=== PATIENT | female | born 1930 | race Caucasian/White ===

== ENCOUNTER 2016-05-09 19:04 | Inpatient (IN) ==
[2016-05-09] MEDS ORDERED: Furosemide 20 MG/2 ML VIAL IVP ONE (23:49)
[2016-05-09] MEDS ORDERED: *HR* Digoxin 0.5 MG/2 ML AMPUL IVP ONE (23:49)
--- NOTE | 2016-05-09 23:57 | Internal Med History&Physical ---
Date of Encounter: 05/09/16 Time of Encounter: 23:57 Assessment and Plan (1) Hip fracture Current visit: Yes Status: Acute Orthopedic consultation Qualifiers: Qualified Code(s): S72.009A - Fracture of unspecified part of neck of unspecified femur, initial encounter for closed fracture (2) Preoperative clearance Current visit: Yes Status: Acute Patient is currently a fit with rapid ventricular response. I will give the patient detox and I am beta blockers to control the rate. I would ask a real disservice to see the patient for preoperative clearance. It seems patient has not had a coronary angiogram however she had had a stress test in August 2015 showing no evidence of reversible ischemia. Continue aspirin and beta blockers. (3) UTI (urinary tract infection) Current visit: No Status: Acute Ceftriaxone. Check urine and blood cultures. She is febrile temperature 100 F. Would prefer to hold off surgery to infection is more controllable and patient is a febrile. The patient is on Flagyl therapy at the outside hospital , not clear why. She has history of C diff. I will resume the Flagyl and checks stool for C diff. Qualifiers: Qualified Code(s): N39.0 - Urinary tract infection, site not specified (4) Atrial fibrillation Current visit: No Status: Chronic I will give digoxin and beta blockers for a control. Holds xarelto in anticipation for surgery. Qualifiers: Atrial fibrillation type: chronic Qualified Code(s): I48.2 - Chronic atrial fibrillation (5) Diastolic CHF Current visit: Yes Status: Acute Suspect the patient had an element of pulmonary congestion from rapid atrial fibrillation. I will give the patient of those of Lasix intravenously Qualifiers: Qualified Code(s): I50.30 - Unspecified diastolic (congestive) heart failure Internal Medicine - H&P: HPI Chief complaint: hip pain History of present illness: Ms. Stoll is a 85 year old female who was transferred from [facility] after she had sustained right femur fracture. Patient was hospitalized there for 2 days however surgery was canceled because patient developed a fever. It was thought that the fever was related to blood transfusion reaction that she had received. However a urine analysis was also concerning for a urinary tract infection. Patient is severely demented she cannot provide any history during my interview. Patient was also agitated and was given Ativan and morphine prior to arrival facility. Patient designs are also which is taking for chronic persistent teacher fibrillation. Patient or analysis of the hospital was an atrial fibrillation with rapid ventricular response animals hypoxic requiring 50 L of oxygen to maintain her saturation above 90%. Patient will also having a temperature over 100F Past Med Surg Social Fam HX - Past Medical History Medical history: arthritis, atrial fibrillation, cardiomyopathy, CHF, dementia, GERD, GI bleed, hyperlipidemia, hypertension, osteoporosis Psychiatric history: no psych history - Past Surgical History Surgical History: breast surgery, cholecystectomy, herniorrhaphy, pacemaker/AICD , other - Social History Smoking Status: Former smoker Smokeless Tobacco Status: No Alcohol use: none Drug use: none Internal Medicine - H&P: Meds Aspirin 81 mg GTUBE DAILY 10/13/14 [History] Calcium Carbonate/Vitamin D3 [Calcium 600+D Softgel] 1 each GTUBE DAILY [History] Lactobacillus [Culturelle] 1 each GTUBE BID 8 Days 04/26/16 [Rx] Metoprolol [Lopressor] 50 mg GTUBE BID tablet 04/26/16 [Rx] MetroNIDAZOLE [Flagyl] 500 mg GTUBE Q8H 8 Days 04/26/16 [Rx] Digoxin [Lanoxin] 0.125 mg GTUBE DAILY 05/09/16 [History] HYDROcodone/Acet 5/325 mg [[place] 5-325 mg] 1 tab GTUBE Q8H PRN 05/09/16 [History ] Isosorbide DInitrate [Isosorbide Dinitrate] 10 mg GTUBE BID 05/09/16 [History] Losartan Potassium [Cozaar] 100 mg GTUBE DAILY 05/09/16 [History] Menthol [Bengay Ultra Strength] 1 each TP DAILY 05/09/16 [History] Menthol/Zinc Oxide [Calmoseptine Ointment Packet] 1 appl TP Q6H PRN 05/09/16 [ History] Methyl Salicylate/Menthol [Bengay] 1 appl TP Q12H PRN 05/09/16 [History] Rivaroxaban [Xarelto] 20 mg GTUBE HS 05/09/16 [History] Sertraline [Zoloft] 25 mg GTUBE DAILY 05/09/16 [History] Trazodone HCl 100 mg GTUBE HS 05/09/16 [History] Allergies amiodarone Allergy (Verified 05/22/15 08:33) Difficulty Swallowing ciprofloxacin [From Cipro] Allergy (Verified 05/22/15 08:33) Hives doxycycline Allergy (Verified 05/22/15 08:33) Hives Sulfa (Sulfonamide Antibiotics) Allergy (Verified 05/22/15 08:33) Hives pravastatin Adverse Reaction (Verified 02/03/16 11:34) Dizziness tramadol Adverse Reaction (Verified 02/03/16 11:34) Hypertension All Systems PM: A 10-system review of systems was performed and is negative for pertinent findings except as documented above in the HPI. Review of systems: 10 point review of systems is negative except for HPI - Constitutional Vitals: Temp Pulse Resp BP Pulse Ox 99.1 F 118 18 176/71 100 05/09/16 22:25 05/09/16 22:25 05/09/16 22:25 05/09/16 22:25 05/09/16 22:25 Exam: Gen.: patient is demented agitated cardio: variable intensity of S1 due to atriAl fibrillation chest: fine basal rales abdomen: soft nontender nondistended lower extremity leg shortened and the externally rotated Internal Med - H&P Results - Impressions ITS Impressions Chest X-Ray 05/09/16 22:13 IMPRESSION: Stable exam without evidence for acute cardiopulmonary process. D/ / Shayne Wise MD / Shayne Wise MD Interpreting Provider: Shayne Wise MD
[2016-05-10] MEDS: metroNIDAZOLE 500 MG TABLET GTUBE SCH ×2 (00:31→09:34)
[2016-05-10 01:22] LABS: Basophils % 0.4 %; Hemoglobin 10.5 g/dL (11.5-15.4); Immature Granulocytes % 0.6 % (0-4); Lymphocytes # 0.5 K/mcL (0.6-4.6); Lymphocytes % 5.4 %; Mean Corpuscular HGB Conc 31.8 g/dL (31.6-35.5); Mean Corpuscular Hemoglobin 30.6 pg (28.0-33.3); Mean Corpuscular Volume 96.2 fL (83.0-100.0); Mean Platelet Volume 10.9 fL (9.4-12.4); Monocytes # 1.1 K/mcL (0.0-1.3); Monocytes % 11.7 %; Platelet Count 140 K/mcL (140-400); Red Blood Count 3.43 M/mcL (3.82-4.97); Red Cell Distribution Width 13.2 % (11.5-14.5); Segmented Neutrophils % 81.9 %
[2016-05-10 01:27] LABS: INR 1.4; Prothrombin Time 15.3 Seconds (9.4-12.1)
[2016-05-10 01:34] LABS: BUN/Creatinine Ratio 25 (6-26); Blood Urea Nitrogen 19 mg/dL (7-20); Carbon Dioxide 25 mEq/L (19-29); Chloride 107 mEq/L (98-109); Glucose 127 mg/dL (70-99); Magnesium 1.4 mg/dL (1.6-2.6); Osmolality,Calculated 296 (280-300); Potassium 3.5 mEq/L (3.5-4.5); Sodium 141 mEq/L (136-145); eGFR For African Americans > 60 (> 60); eGFR For Non-African Americans > 60 (> 60)
--- NOTE | 2016-05-10 07:55 | Orthopedic Consult Note ---
Date of Encounter: 05/10/16 Time of Encounter: 07:54 Assessment and Plan (1) Fracture of right hip Current Visit: Yes Status: Acute Awaiting Cardio Consult - Consent discussed - patient has dementia and will discuss with family as well. Plan for Right Hip IM nailing today with History of Present Illness HPI: Ms. Stoll is a 85 year old female Past Med Surg Social Fam HX - Past Medical History Medical history: arthritis, atrial fibrillation, cardiomyopathy, CHF, dementia, GERD, GI bleed, hyperlipidemia, hypertension, osteoporosis Psychiatric history: no psych history - Past Surgical History Surgical History: breast surgery, cholecystectomy, herniorrhaphy, pacemaker/AICD , other - Social History Smoking Status: Former smoker Smokeless Tobacco Status: No Alcohol use: none Drug use: none Medications and Allergies Aspirin 81 mg GTUBE DAILY 10/13/14 [History] Calcium Carbonate/Vitamin D3 [Calcium 600+D Softgel] 1 each GTUBE DAILY [History] Lactobacillus [Culturelle] 1 each GTUBE BID 8 Days 04/26/16 [Rx] Metoprolol [Lopressor] 50 mg GTUBE BID tablet 04/26/16 [Rx] MetroNIDAZOLE [Flagyl] 500 mg GTUBE Q8H 8 Days 04/26/16 [Rx] Digoxin [Lanoxin] 0.125 mg GTUBE DAILY 05/09/16 [History] HYDROcodone/Acet 5/325 mg [[place] 5-325 mg] 1 tab GTUBE Q8H PRN 05/09/16 [History ] Isosorbide DInitrate [Isosorbide Dinitrate] 10 mg GTUBE BID 05/09/16 [History] Losartan Potassium [Cozaar] 100 mg GTUBE DAILY 05/09/16 [History] Menthol [Bengay Ultra Strength] 1 each TP DAILY 05/09/16 [History] Menthol/Zinc Oxide [Calmoseptine Ointment Packet] 1 appl TP Q6H PRN 05/09/16 [ History] Methyl Salicylate/Menthol [Bengay] 1 appl TP Q12H PRN 05/09/16 [History] Rivaroxaban [Xarelto] 20 mg GTUBE HS 05/09/16 [History] Sertraline [Zoloft] 25 mg GTUBE DAILY 05/09/16 [History] Trazodone HCl 100 mg GTUBE HS 05/09/16 [History] Allergies amiodarone Allergy (Verified 05/22/15 08:33) Difficulty Swallowing ciprofloxacin [From Cipro] Allergy (Verified 05/22/15 08:33) Hives doxycycline Allergy (Verified 05/22/15 08:33) Hives Sulfa (Sulfonamide Antibiotics) Allergy (Verified 05/22/15 08:33) Hives pravastatin Adverse Reaction (Verified 02/03/16 11:34) Dizziness tramadol Adverse Reaction (Verified 02/03/16 11:34) Hypertension All Systems Reviewed: A 10-system review of systems was performed and is negative for pertinent findings except as documented above in the HPI. Physical Exam - Constitutional Vitals: Temp Pulse Resp BP Pulse Ox 98.5 F 122 28 141/80 100 05/10/16 06:34 05/10/16 06:34 05/10/16 06:34 05/10/16 06:34 05/10/16 06:34 Results - Labs Result Diagrams: 05/10/16 00:20 05/10/16 00:20 Labs: Abnormal lab results RBC 3.43 M/mcL (3.82-4.97) L 05/10/16 00:20 Hgb 10.5 g/dL (11.5-15.4) L 05/10/16 00:20 Hct 33.0 % (35.3-44.9) L 05/10/16 00:20 Lymphocytes # 0.5 K/mcL (0.6-4.6) L 05/10/16 00:20 PT 15.3 Seconds (9.4-12.1) H 05/10/16 00:20 Glucose 127 mg/dL (70-99) H 05/10/16 00:20 Magnesium 1.4 mg/dL (1.6-2.6) L 05/10/16 00:20 H & H 05/10/16 Range/Units 00:20 Hgb 10.5 L (11.5-15.4) g/dL Hct 33.0 L (35.3-44.9) % All other labs normal. Consult Discharge Plan - Plan Referrals: Oscar Saini MD [Primary Care Provider] -
--- NOTE | 2016-05-10 08:17 | Orthopedics Progress Note ---
Date of Encounter: 05/10/16 Time of Encounter: 08:16 Subjective Interval history: Patient is well-known to me from her admission at [facility]. Was originally scheduled for right hip surgery surgery was delayed due to transfusion reaction. Discussed risks and benefits as well as recovery with the family. Patient is high risk and the family understands this. A 4 surgery this afternoon when cleared Objective Vital signs: Vital Signs Temp Pulse Resp BP Pulse Ox 05/10/16 06:34 98.5 F 122 28 141/80 100 05/10/16 04:00 98.9 F 106 17 137/81 98 05/10/16 00:00 98.3 F 127 18 153/77 100 05/09/16 22:25 99.1 F 118 18 176/71 100 Intake and Output 05/09/16 05/10/16 05/10/16 23:59 07:59 15:59 Intake Total 0 / 0 Output Total 1925 / 1925 Balance -1925 / -1925 Intake: Oral 0 / 0 Output: Urine 375 / 375 Catheter 1550 / 1550 Other: Weight 47.264 kg Patient Weight 05/10/16 23:59 Weight 47.264 kg - Labs CBC & BMP: 05/10/16 00:20 05/10/16 00:20 Labs: Abnormal lab results RBC 3.43 M/mcL (3.82-4.97) L 05/10/16 00:20 Hgb 10.5 g/dL (11.5-15.4) L 05/10/16 00:20 Hct 33.0 % (35.3-44.9) L 05/10/16 00:20 Lymphocytes # 0.5 K/mcL (0.6-4.6) L 05/10/16 00:20 PT 15.3 Seconds (9.4-12.1) H 05/10/16 00:20 Glucose 127 mg/dL (70-99) H 05/10/16 00:20 Magnesium 1.4 mg/dL (1.6-2.6) L 05/10/16 00:20 Consult Discharge Plan - Plan Referrals: Oscar Saini MD [Primary Care Provider] -
[2016-05-10] MEDS ORDERED: *HR* Digoxin 0.125 MG TABLET PO SCH (09:00)
[2016-05-10] MEDS ORDERED: Aspirin 81 MG TAB.CHEW GTUBE SCH (09:00)
[2016-05-10] MEDS: *HR* Morphine 2 MG/ML SYRINGE IVP PRN ×2 (09:35→13:49)
--- NOTE | 2016-05-10 10:04 | Cardiology Consult Note ---
Date of Encounter: 05/10/16 Time of Encounter: 10:03 Assessment and Plan (1) Pre-operative cardiovascular examination Current Visit: Yes Status: Acute Planned to undergo hip surgery for right hip fx. Pt nonverbal--unable to obtain any information from pt. Echo 02/02/16 EF 65%, mild asymmetric LV basal septal hypertrophy, no evidence of LVOT obstruction, mild AR, mild-moderate MR, severe TR, severe pulmonary hypertension. Pharmacologic nuclear stress test 08/2015 perfusion imaging negative for ischemia or infarct. Gated EF >70%. Given that EF is preserved and she has a recent negative stress test in the past year, she is acceptable intermediate risk from a cardiac standpoint to undergo orthopedic surgery. 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 No further cardiac work-up warranted. (2) Atrial fibrillation with RVR Current Visit: Yes Status: Chronic Known hx of chronic A-Fib. Currently RVR in setting of hip fx and documented suspected UTI at outside facility. K 3.5 and Mag 1.4--will replace. Currently on PO BB and Digoxin via Gtube. HR was 130s, but after receiving 10mg IV push of Cardizem HR now 80s-low 100s. Will start short acting cardizem 30mg [id number] via Gtube to help with rate control. Previously on Xarelto for anticoagulation, currently on hold and complicated by hip fx and requiring blood transfusions at outside facility. In her current state, she is a poor candidate for teller manager anticoagulation. Continue ASA. (3) Pacemaker Current Visit: Yes Status: Chronic Dual chamber PPM in place for hx of SSS. Device interrogated. Device at [facility] as of 03/30/16. Pacing VVI 65 mode. Ventricular pacing 94.8%. No urgent indication to replace battery prior to surgery, but will need set up in near future. Will coordinate with EP. Discussion w patient/family: The assessment and plan as outlined above was discussed with the patient and/or family members who expressed understanding and agreement. All questions were answered. Thank you for involving us in the care of your patient. Please call with any questions. I will discuss all the above with Dr. Richards and make changes as necessary. History of Present Illness Consult date: 05/10/16 Requesting physician: Anjel Shah Consult reason: pre-op cardio eval, A-Fib History of present illness: Ms. Stoll is a 85 year old female with PMH of COPD, chronic A-Fib anticoagulated on Xarelto, SSS s/p PPM, HTN, dementia. She presented in transfer from [facility] after she had sustained right femur fracture. Patient was hospitalized there for 2 days, planned for surgery, but it was canceled because patient developed a fever. It was thought that the fever was related to blood transfusion reaction, but UA was also concerning for UTI. Cardiology has been consulted for pre-op risk stratification and for pt's A-Fib with RVR, rates currently 130s. She is nonverbal, unable to obtain information. Recent cardiac testing: Echo 02/02/16 EF 65%, mild asymmetric LV basal septal hypertrophy, no evidence of LVOT obstruction. Normal RV structure and function. Severely dilated left and right atrium. Mild AR, mild-moderate MR, severe TR, severe pulmonary hypertension. Pharmacologic nuclear stress test 08/2015 perfusion imaging negative for ischemia or infarct. Gated EF >70%. Past Med Surg Social Fam HX - Past Medical History Source: old records reviewed Medical history: arthritis, atrial fibrillation, cardiomyopathy, CHF, dementia, GERD, GI bleed, hyperlipidemia, hypertension, osteoporosis Psychiatric history: no psych history - Past Surgical History Surgical History: breast surgery, cholecystectomy, herniorrhaphy, pacemaker/AICD , other - Social History Smoking Status: Former smoker Smokeless Tobacco Status: No Alcohol use: none Drug use: none Medications and Allergies Aspirin 81 mg GTUBE DAILY 10/13/14 [History] Calcium Carbonate/Vitamin D3 [Calcium 600+D Softgel] 1 each GTUBE DAILY [History] Lactobacillus [Culturelle] 1 each GTUBE BID 8 Days 04/26/16 [Rx] Metoprolol [Lopressor] 50 mg GTUBE BID tablet 04/26/16 [Rx] MetroNIDAZOLE [Flagyl] 500 mg GTUBE Q8H 8 Days 04/26/16 [Rx] Digoxin [Lanoxin] 0.125 mg GTUBE DAILY 05/09/16 [History] HYDROcodone/Acet 5/325 mg [[place] 5-325 mg] 1 tab GTUBE Q8H PRN 05/09/16 [History ] Isosorbide DInitrate [Isosorbide Dinitrate] 10 mg GTUBE BID 05/09/16 [History] Losartan Potassium [Cozaar] 100 mg GTUBE DAILY 05/09/16 [History] Menthol [Bengay Ultra Strength] 1 each TP DAILY 05/09/16 [History] Menthol/Zinc Oxide [Calmoseptine Ointment Packet] 1 appl TP Q6H PRN 05/09/16 [ History] Methyl Salicylate/Menthol [Bengay] 1 appl TP Q12H PRN 05/09/16 [History] Rivaroxaban [Xarelto] 20 mg GTUBE HS 05/09/16 [History] Sertraline [Zoloft] 25 mg GTUBE DAILY 05/09/16 [History] Trazodone HCl 100 mg GTUBE HS 05/09/16 [History] Allergies amiodarone Allergy (Verified 05/22/15 08:33) Difficulty Swallowing ciprofloxacin [From Cipro] Allergy (Verified 05/22/15 08:33) Hives doxycycline Allergy (Verified 05/22/15 08:33) Hives Sulfa (Sulfonamide Antibiotics) Allergy (Verified 05/22/15 08:33) Hives pravastatin Adverse Reaction (Verified 02/03/16 11:34) Dizziness tramadol Adverse Reaction (Verified 02/03/16 11:34) Hypertension ROS unobtainable: due to mental status All Systems Review: A 10-system review of systems was performed and is negative for pertinent findings except as documented above in the HPI. Physical Examination Vital Signs, Last 4 Hours Temp Pulse Resp BP Pulse Ox 05/10/16 06:34 98.5 F 122 28 141/80 100 Vital Signs Temp Pulse Resp BP Pulse Ox 05/10/16 06:34 98.5 F 122 28 141/80 100 05/10/16 04:00 98.9 F 106 17 137/81 98 05/10/16 00:00 98.3 F 127 18 153/77 100 05/09/16 22:25 99.1 F 118 18 176/71 100 Intake and Output 05/09/16 05/10/16 05/10/16 23:59 07:59 15:59 Intake Total 0 / 0 Output Total 1924 Balance -1924 Intake: Oral 0 / 0 Output: Urine 375 / 375 Catheter 1550 / 1550 Other: Weight 47.264 kg Patient Weight 05/10/16 23:59 Weight 47.264 kg General: Other (nonverbal) HEENT: Atraumatic, Normocephaly, Mucus Membranes Moist Neck: No JVD, Normal carotid pulses Cardiac: Other (irregularly irregular rhythm) Lungs: Other (diminished) Neuro: Other (confused, nonverbal) Abdomen: Soft, Non-Tender Skin: No rashes noted on visualized skin Musculoskeletal: No Chest Wall Tenderness Extremities: No Clubbing, No Cyanosis, No Edema, Normal Pulses Results 05/10/16 00:20 05/10/16 00:20 Lab Results 05/10/16 05/10/16 05/10/16 00:20 00:20 00:20 WBC 9.8 Hgb 10.5 L Hct 33.0 L Plt Count 140 INR 1.4 Sodium 141 Potassium 3.5 Chloride 107 Carbon Dioxide 25 BUN 19 Creatinine 0.75 Glucose 127 H Calcium 9.0 Magnesium 1.4 L Short CBC 05/10/16 Range/Units 00:20 WBC 9.8 (4.3-11.1) K/mcL Hgb 10.5 L (11.5-15.4) g/dL Hct 33.0 L (35.3-44.9) % Plt Count 140 (140-400) K/mcL Neutrophils # 8.0 (1.6-8.9) K/mcL BMP 05/10/16 Range/Units 00:20 Sodium 141 (136-145) mEq/L Potassium 3.5 (3.5-4.5) mEq/L Chloride 107 (98-109) mEq/L Carbon Dioxide 25 (19-29) mEq/L BUN 19 (7-20) mg/dL Creatinine 0.75 (0.57-1.11) mg/dL Glucose 127 H (70-99) mg/dL Calcium 9.0 (8.6-10.8) mg/dL Impressions Chest X-Ray 05/09/16 22:13 IMPRESSION: Stable exam without evidence for acute cardiopulmonary process. D/ / Shayne Wise MD / Shayne Wise MD Interpreting Provider: Shayne Wise MD Active Medications Aspirin (Aspirin) 81 mg GTUBE DAILY YANELI Stop: 11/09/16 09:01 Last Admin: 05/10/16 09:34 Dose: 81 mg Digoxin (Lanoxin) 0.125 mg PO DAILY YANELI Stop: 11/09/16 09:01 Last Admin: 05/10/16 09:34 Dose: 0.125 mg Ceftriaxone Sodium 1,000 mg/ (Dextrose) 100 mls @ 200 mls/hr IVPB Q24H YANELI Stop: 11/08/16 23:46 Last Admin: 05/10/16 00:31 Dose: 200 mls/hr Isosorbide Dinitrate (Isordil) 10 mg PO BID YANELI Stop: 11/09/16 09:01 Last Admin: 05/10/16 09:34 Dose: 10 mg Metoprolol Tartrate (Lopressor) 50 mg GTUBE BID [facility] Stop: 11/08/16 23:46 Last Admin: 05/10/16 09:34 Dose: 50 mg Metronidazole (Flagyl) 500 mg GTUBE Q8H YANELI PRN Reason: Protocol Stop: 11/09/16 00:16 Last Admin: 05/10/16 09:34 Dose: 500 mg Morphine Sulfate (Morphine Sulfate) 1 mg IVP Q4HR PRN PRN Reason: Pain Stop: 11/09/16 08:01 Last Admin: 05/10/16 09:35 Dose: 1 mg Sertraline HCl (Zoloft) 25 mg GTUBE DAILY [facility] Stop: 11/09/16 09:01 Last Admin: 05/10/16 09:34 Dose: 25 mg Trazodone HCl (Trazodone) 100 mg GTUBE HS [facility] Stop: 11/09/16 21:01 - Imaging and Cardiology Stress Test: report reviewed (Pharmacologic nuclear stress test 08/2015 perfusion imaging negative for ischemia or infarct. Gated EF >70%.) Echo: report reviewed (Echo 02/02/16 EF 65%, mild asymmetric LV basal septal hypertrophy, no evidence of LVOT obstruction. Normal RV structure and function. Severely dilated left and right atrium. Mild AR, mild-moderate MR, severe TR, severe pulmonary hypertension.) - EKG Interpretation EKG results cardiology: personally reviewed (A-Fib RVR, rate 118), other (24 hour tele AVG HR 123, A-Fib) Consult Discharge Plan - Plan Referrals: Oscar Saini MD [Primary Care Provider] -
[2016-05-10] MEDS ORDERED: Magnesium Sulfate 2 GM in D5% in Water 100 ML IVPB ONE (11:03)
[2016-05-10] MEDS ORDERED: Potassium Chloride Elixir 20 MEQ/15 ML UDC GTUBE ONE (11:03)
--- NOTE | 2016-05-10 14:08 | Anesthesia Evaluation PreOp ---
Date of Encounter: 05/10/16 Time of Encounter: 14:06 - Past History Planned Operation: r hip IM Nail Cardiac History: CHF, HTN, Hyperlipidemia, Arrhythmia (chronic af, rvr incident on 05/08, now controlled), Pacemaker/ICD (dual chamber pm, nomi life 1-8mos. placed for SSS. VVI), Other (stress 08/17: ef 70, neg ischemia. echo 02/16: ef 65, nl rv, mild ar, mod mr, SEVERE TR, SEVERE pulm HTN rvsp 60severe dilation both atria) Pulmonary History: Former smoker, COPD, Other (pft 11/16, mod obst vent impairment) PARAPROFESSIONAL INTERPRETER History: Other (RA, cataracts, dementia) Other Medical History: Thyroid Anesthesia History: No Prior Anesthetic Complications, Past Anesthesia (breast, cholecyst, herniorrhaphy, pm) Alcohol Use: none Drug use: none Medications and Allergies Aspirin 81 mg GTUBE DAILY 10/13/14 [History] Calcium Carbonate/Vitamin D3 [Calcium 600+D Softgel] 1 each GTUBE DAILY [History] Lactobacillus [Culturelle] 1 each GTUBE BID 8 Days 04/26/16 [Rx] Metoprolol [Lopressor] 50 mg GTUBE BID tablet 04/26/16 [Rx] MetroNIDAZOLE [Flagyl] 500 mg GTUBE Q8H 8 Days 04/26/16 [Rx] Digoxin [Lanoxin] 0.125 mg GTUBE DAILY 05/09/16 [History] HYDROcodone/Acet 5/325 mg [[place] 5-325 mg] 1 tab GTUBE Q8H PRN 05/09/16 [History ] Isosorbide DInitrate [Isosorbide Dinitrate] 10 mg GTUBE BID 05/09/16 [History] Losartan Potassium [Cozaar] 100 mg GTUBE DAILY 05/09/16 [History] Menthol [Bengay Ultra Strength] 1 each TP DAILY 05/09/16 [History] Menthol/Zinc Oxide [Calmoseptine Ointment Packet] 1 appl TP Q6H PRN 05/09/16 [ History] Methyl Salicylate/Menthol [Bengay] 1 appl TP Q12H PRN 05/09/16 [History] Rivaroxaban [Xarelto] 20 mg GTUBE HS 05/09/16 [History] Sertraline [Zoloft] 25 mg GTUBE DAILY 05/09/16 [History] Trazodone HCl 100 mg GTUBE HS 05/09/16 [History] Allergies amiodarone Allergy (Verified 05/22/15 08:33) Difficulty Swallowing ciprofloxacin [From Cipro] Allergy (Verified 05/22/15 08:33) Hives doxycycline Allergy (Verified 05/22/15 08:33) Hives Sulfa (Sulfonamide Antibiotics) Allergy (Verified 05/22/15 08:33) Hives pravastatin Adverse Reaction (Verified 02/03/16 11:34) Dizziness tramadol Adverse Reaction (Verified 02/03/16 11:34) Hypertension - Meds/Allergy Pre-op Review Medications Reviewed: Yes Allergies Reviewed: Yes Beta Blockers on Current Med List: Yes If Beta Blockers taken, Date/Time (Last Dose taken): metoprolol at 0934 Anesthesia Results - Labs 05/10/16 00:20 05/10/16 00:20 - Imaging EKG: report reviewed (dormitory counselor) Anesthesia Exam Height: 1.65 Weight: 47 NPO (# of Hours): >8 - HEENT Pupil (Motor): Pupils equal, EOMI Mallampati: II Teeth: Edentulous Oral Opening: Greater than 3 - PARAPROFESSIONAL INTERPRETER LOC: Unable to assess PARAPROFESSIONAL INTERPRETER Motor: Deficit RUE, Deficit LUE, Deficit RLE, Deficit LLE, Deficit Face PARAPROFESSIONAL INTERPRETER Sensory: Deficit: RUE, LUE, RLE, LLE, Face - Cardiac Rhythm: Regular Murmur: None - Pulmonary Breath Sounds: bilateral Clear Respiratory Effort: Symmetrical Anesthesia Assess/Plan ASA Score: 4 (d/w daughter i/c/r/b/a. concerned with nomi life, we will have pacer pads placed preop. concerned for post anesthesia extubation with h/o copd /pulm htn as well but plan is to extubate) Modified [place] Scale for Level of Consciousness: Anixous, agitated or restless Anesthetic Plan: General Monitoring Plan: Standard Monitors Recovery Plan: PACU
[2016-05-10] MEDS ORDERED: *HR* Succinylcholine 200 MG/10 ML VIAL IVP ONE (14:23)
[2016-05-10] MEDS ORDERED: Lidocaine -MPF 4% 5 ML AMPUL ONE (14:23)
[2016-05-10] MEDS ORDERED: Dexamethasone 4 MG/ML VIAL ONE (14:23)
[2016-05-10] MEDS ORDERED: *HR* FentaNYL (PF) 100 MCG/2 ML VIAL ONE (14:23)
[2016-05-10] MEDS ORDERED: *HR* Midazolam HCl 2 MG/2 ML VIAL ONE (14:23)
[2016-05-10] MEDS ORDERED: Lidocaine -MPF 2% 2 ML VIAL ONE (14:23)
[2016-05-10] MEDS ORDERED: *HR* Phenylephrine 10 MG/ML VIAL ONE (14:23)
[2016-05-10] MEDS ORDERED: Ondansetron 4 MG/2 ML VIAL ONE (14:23)
[2016-05-10] MEDS ORDERED: *HR* Propofol 200 MG/20 ML VIAL IVP ONE (14:23)
[2016-05-10] MEDS ORDERED: ceFAZolin 2,000 MG in D5% in Water 100 ML IVPB ONE (15:50)
[2016-05-10] MEDS ORDERED: *HR* HYDROmorphone (PF) 1 MG/ML SYRINGE IVP PRN (16:01)
[2016-05-10] MEDS ORDERED: Ondansetron 4 MG/2 ML VIAL IVP ONE (16:01)
[2016-05-10] MEDS ORDERED: *HR* Promethazine 25 MG/ML VIAL IVP PRN (16:01)
--- NOTE | 2016-05-10 16:01 | Electrocardiograph Report ---
[address] [place] [address] Test Date: 2016-05-09 Pat Name: Elvira Stoll Department: 114 Room: [facility] Gender: F Pourer Off: : 1930 Requested By: Manoj Dewey Order Number: [id number] Reading MD: Louie Mcneal MD Measurements Intervals [place] Rate: 118 P: MN: 0 QRS: 69 QRSD: 96 T: 13 QT: 295 QTc: 365 Interpretive Statements ATRIAL FIBRILLATION WITH RAPID VENTRICULAR RESPONSE INCOMPLETE RIGHT BUNDLE BRANCH BLOCK MINIMAL VOLTAGE CRITERIA FOR LVH, CONSIDER NORMAL VARIANT SEPTAL MYOCARDIAL INFARCTION, OF INDETERMINATE AGE BASELINE ARTIFACT Electronically Signed On 05-10-2016 16:00:02 EST by Louie Mcneal MD
--- NOTE | 2016-05-10 16:16 | Orthopedic Operative Note ---
Date of procedure: 05/10/16 Pre-op diagnosis: Displaced right intertrochanteric hip fracture Post-op diagnosis: same Procedure: Procedure: Right hip open reduction intramedullary nail fixation Estimated blood loss: 100 cc Hardware:Synthes 10 x 130 TFN, helical blade, 36 distal locking bolt, superficially cable Procedural Notes: She with a displaced fracture requiring reduction with super cable prior to placement of IM nail Operative procedure: The patient was brought to the operating room and placed on the operating room table. After general anesthesia was administered the well leg was place in the well leg bauman and the operative leg was placed in the fracture leg bauman. All pressure points were padded appropriately. The operative extremity was prepped and draped in the sterile surgical fashion patient received IV antibiotic prior to skin incision. A standard direct lateral approach was made over the entry point of the greater trochanter, the incision was made through the skin and subcutaneous tissue hemostasis was obtained with Bovie cautery. Using careful sharp dissection the fascia was identified and incised, flouroscopic assistance was used to identify the entry point. Prior to placement of the guidepin. The fracture was exposed and reduced and held in place with a bone-holding forceps. A super cable was passed around this to get preliminary fixation. Position of the hardware as well as fracture reduction was found to accept. Fluoroscopic evaluation in the AP and lateral planes. The guidepin was placed at the entry point using fluroscopic assistance, it was over reamed with the proximal reamer. The nail was placed through the entry hole, across the fracture site into the distal fragment the position was confirmed with fluroscopy. A guide pin was placed through the proximal locking guide from the lateral femur through the nail across the fracture site into the femoral head, it was over reamed with the reamer. The helical blade was placed over the guide pin through the nail into the femoral head, locked in place with the proximal locking bolt. Distal locking bolt was placed through the distal locking guide position of hardware and fracture reduction found to be acceptable with fluroscopic assistance. The wound was irrigated. Fascia was closed with a running #2 PDS suture. The deep tissue was irrigated and closed deep with #1 PDS suture superficially with 0 PDS suture and skin was closed with skin torie. The patient was placed in a sterile dressing The patient was extubated and transferred to the recovery room in stable condition. Anesthesia: GETA Surgeon: Rogelio Valles Condition: stable Disposition: PACU
--- NOTE | 2016-05-10 17:13 | Internal Med Progress Note ---
Date of Encounter: 05/10/16 Time of Encounter: 17:11 - Assessment and plan (1) Hip fracture Current Visit: Yes Status: Acute Assessment and plan: surgery today. post op care as per ortho. Qualifiers: Qualified Code(s): S72.009A - Fracture of unspecified part of neck of unspecified femur, initial encounter for closed fracture (2) Atrial fibrillation with RVR Current Visit: Yes Status: Chronic Assessment and plan: Known hx of chronic A-Fib. Currently RVR in setting of hip fx and documented suspected UTI at outside facility. Currently on PO BB and Digoxin via Gtube. HR was 130s, but after receiving 10mg IV push of Cardizem HR now 80s-low 100s. Will start short acting cardizem 30mg [id number] via Gtube to help with rate control as per cardiology. she is a poor candidate for senior care anticoagulation. Continue ASA. (3) UTI (urinary tract infection) Current Visit: No Status: Acute Assessment and plan: started on IV ceftriaxone for documented UTI on outside facility on admission, will send UA and urine cx. will continue IV antibiotics until results. Qualifiers: Qualified Code(s): N39.0 - Urinary tract infection, site not specified (4) C. difficile diarrhea Current Visit: Yes Status: Acute Assessment and plan: has h/o c.d iff and was being treated for that before admision. will continue IV flagyl for now. recheck c. diff in stool. - Time Spent With Patient 25 - 35 minutes - Subjective Interval history: seen at the bedside, calm now, admitted for hip fracture. demented and does not give any history. ortho has been consulted, planned for surgery, seen by cardio , moderate risk for surgery. - Constitutional Vitals: Temp Pulse Resp BP Pulse Ox 97.3 F L 96 16 156/77 100 05/10/16 16:52 05/10/16 17:02 05/10/16 17:02 05/10/16 17:02 05/10/16 17:02 General appearance: Present: A&O X 0 Exam: Gen.: patient is demented. cardio: s1 and s2, irregular, no m/r/g chest: b/l clear, no added sounds abdomen: soft nontender nondistended lower extremity leg shortened and the externally rotated Internal Medicine: Result - Labs CBC & Chem 7: 05/10/16 00:20 05/10/16 00:20 Labs: Short CBC 05/10/16 Range/Units 00:20 WBC 9.8 (4.3-11.1) K/mcL Hgb 10.5 L (11.5-15.4) g/dL Hct 33.0 L (35.3-44.9) % Plt Count 140 (140-400) K/mcL Neutrophils # 8.0 (1.6-8.9) K/mcL BMP 05/10/16 00:20 Sodium 141 Potassium 3.5 Chloride 107 Carbon Dioxide 25 BUN 19 Creatinine 0.75 Glucose 127 H Calcium 9.0 - ABG Interpretation ABG results: PT/INR, D-dimer PT 15.3 Seconds (9.4-12.1) H 05/10/16 00:20 - Impressions Impressions Chest X-Ray 05/09/16 22:13 IMPRESSION: Stable exam without evidence for acute cardiopulmonary process. D/ / Shayne Wise MD / Shayne Wise MD Interpreting Provider: Shayne Wise MD Fluoroscopy 05/10/16 15:31 IMPRESSION: Intraprocedural fluoroscopic spot images as above. See separate procedure report for more information. D/ / 05/10/2016 16:44:15 Louis Rojas MD / [email or web address] Interpreting Provider: Louis Rojas MD Consult Discharge Plan - Plan Referrals: Oscar Saini MD [Primary Care Provider] -
[2016-05-10] MEDS ORDERED: Acetaminophen IV 1,000 MG/100 ML INFUS..BTL ONE (17:27)
[2016-05-10] MEDS ORDERED: Acetaminophen IV 1,000 MG/100 ML INFUS..BTL IVPB ONE (17:28)
--- NOTE | 2016-05-10 18:12 | Anesthesia Evaluation Post Op ---
Date of Encounter: 05/10/16 Time of Encounter: 18:11 - Vital Signs Vital Signs: Vital Signs/O2 Sat/Glucose, Most Current Temp Pulse Resp BP Pulse Ox 05/10/16 18:02 109 16 138/82 100 05/10/16 17:52 97.7 F 115 16 127/91 100 05/10/16 17:42 113 16 154/100 98 05/10/16 17:32 99 16 121/69 98 05/10/16 17:22 97.6 F 97 16 125/78 100 05/10/16 17:12 109 16 128/96 100 05/10/16 17:02 96 16 156/77 100 05/10/16 16:52 97.3 F L 89 16 155/90 100 05/10/16 16:42 90 16 120/69 100 05/10/16 16:32 99 16 127/73 100 05/10/16 16:22 97.0 F L 94 16 142/80 100 - Lungs Lungs: Clear Ascult./Percussion - Airway Airway: Non-obstructed - Cardiovascular Baseline Rhythm - Mental Status Mental Status: Non-responsive (baseline) - Pain Pain Scale: 2 Pain Scale used: HuertaLoretta (Faces) - Nausea Vomiting Nausea Vomiting: Not Present - Hydration Hydration: NPO - Discharge PostOp Status: Transfer Patient to floor
[2016-05-10] MEDS ORDERED: Naloxone 0.4 MG/ML INJ IVP PRN (18:18)
[2016-05-10] MEDS ORDERED: NON-FORMULARY MEDICATION 1 EACH EACH (Rivaroxaban [Xarelto] 20 MG) GTUBE SCH (21:00)
[2016-05-10] MEDS ORDERED: traZODone 50 MG TABLET GTUBE SCH (21:00)
[2016-05-10] MEDS: *HR* Rivaroxaban 15 MG TABLET PO SCH (21:30)
[2016-05-10] MEDS: traZODone 50 MG TABLET GTUBE SCH (21:30)
[2016-05-10] MEDS: D5% in 0.45% NACL 1,000 ML IVC SCH (21:31)
[2016-05-11] MEDS: metroNIDAZOLE 500 MG TABLET GTUBE SCH ×3 (00:33→17:17)
[2016-05-11 05:07] LABS: Hematocrit 30.3 % (35.3-44.9); Hemoglobin 9.6 g/dL (11.5-15.4)
[2016-05-11 05:19] LABS: BUN/Creatinine Ratio 45 (6-26); Calcium 9.5 mg/dL (8.6-10.8); Carbon Dioxide 28 mEq/L (19-29); Chloride 104 mEq/L (98-109); Glucose 158 mg/dL (70-99); Osmolality,Calculated 299 (280-300); Potassium 3.6 mEq/L (3.5-4.5); Sodium 139 mEq/L (136-145); eGFR For African Americans > 60 (> 60); eGFR For Non-African Americans > 60 (> 60)
[2016-05-11 05:20] LABS: Blood Urea Nitrogen 33 mg/dL (7-20)
[2016-05-11] MEDS ORDERED: ceFAZolin 2,000 MG in D5% in Water 100 ML IVPB ONE (08:00)
--- NOTE | 2016-05-11 08:40 | Orthopedics Progress Note ---
Date of Encounter: 05/11/16 Time of Encounter: 08:40 Subjective Interval history: Patient was seen this morning with confusion Afebrile vital signs stable. Operative extremity: Neurovascularly intact Dressing clean dry and intact Calves nontender Assessment and plan: Continue with postoperative care Objective Vital signs: Vital Signs Temp Pulse Resp BP Pulse Ox 05/11/16 06:49 97.4 F L 87 16 143/62 97 05/11/16 03:54 97.4 F L 78 17 102/48 100 05/11/16 00:05 97.5 F L 92 16 117/66 100 05/10/16 21:15 97.5 F L 113 17 129/74 100 05/10/16 20:15 97.5 F L 103 17 103/60 100 05/10/16 19:15 97.4 F L 105 16 120/66 100 05/10/16 18:47 97.9 F 101 18 115/59 100 05/10/16 18:15 97.3 F L 112 15 151/63 98 05/10/16 18:02 109 16 138/82 100 05/10/16 17:52 97.7 F 115 16 127/91 100 05/10/16 17:42 113 16 154/100 98 05/10/16 17:32 99 16 121/69 98 05/10/16 17:22 97.6 F 97 16 125/78 100 05/10/16 17:12 109 16 128/96 100 05/10/16 17:02 96 16 156/77 100 05/10/16 16:52 97.3 F L 89 16 155/90 100 05/10/16 16:42 90 16 120/69 100 05/10/16 16:32 99 16 127/73 100 05/10/16 16:22 97.0 F L 94 16 142/80 100 Intake and Output 05/10/16 05/11/16 05/11/16 23:59 07:59 15:59 Intake Total 100 / 100 400 / 400 Output Total 200 / 200 750 / 750 450 / 450 Balance -100 / -100 -350 / -350 -450 / -450 Intake: IV Fluids 100 / 100 100 / 100 Ofirmev 1,000 mg In 100 100 / 100 ml @ 400 mls/hr IVPB ONCE ONE Rx#:[id number] Rocephin 1,000 MG In 100 / 100 Dextrose 5% (Minibag+) 100 ML 100 ML @ 200 mls/ hr IVPB Q24H [facility] Rx#: [id number] Oral 0 / 0 0 / 0 Free Water 300 / 300 Output: Estimated Blood Loss 100 / 100 Catheter 100 / 100 750 / 750 450 / 450 Other: Stool Size Moderate Stool Consistency loose liquid Stool Color Brown # Bowel Movement Diapers 1 - Labs CBC & BMP: 05/11/16 04:22 05/11/16 04:22 Labs: Abnormal lab results RBC 3.43 M/mcL (3.82-4.97) L 05/10/16 00:20 Hgb 9.6 g/dL (11.5-15.4) L 05/11/16 04:22 Hct 30.3 % (35.3-44.9) L 05/11/16 04:22 Lymphocytes # 0.5 K/mcL (0.6-4.6) L 05/10/16 00:20 PT 15.3 Seconds (9.4-12.1) H 05/10/16 00:20 BUN 33 mg/dL (7-20) H D 05/11/16 04:22 BUN/Creatinine Ratio 45 (6-26) H 05/11/16 04:22 Glucose 158 mg/dL (70-99) H 05/11/16 04:22 Magnesium 1.4 mg/dL (1.6-2.6) L 05/10/16 00:20 - VTE Documentation of Mechanical Device: Venous foot pump, device Consult Discharge Plan - Plan Referrals: Oscar Saini MD [Primary Care Provider] -
[2016-05-11] MEDS: *HR* HYDROcodone/Acet 5/325 mg TABLET GTUBE PRN (12:05)
[2016-05-11] MEDS: *HR* Digoxin 0.125 MG TABLET PO SCH (12:06)
[2016-05-11] MEDS: Aspirin 81 MG TAB.CHEW GTUBE SCH (12:06)
[2016-05-11] MEDS: D5% in 0.45% NACL 1,000 ML IVC SCH (14:21)
[2016-05-11] MEDS: *HR* Rivaroxaban 15 MG TABLET PO SCH (17:17)
--- NOTE | 2016-05-11 17:45 | Internal Med Progress Note ---
Date of Encounter: 05/11/16 Time of Encounter: 17:42 - Assessment and plan (1) Hip fracture Current Visit: Yes Status: Acute Assessment and plan: s/p Right hip open reduction intramedullary nail fixation, POD#1 post op care as per ortho. DVT prophylaxis Qualifiers: Qualified Code(s): S72.009A - Fracture of unspecified part of neck of unspecified femur, initial encounter for closed fracture (2) Atrial fibrillation with RVR Current Visit: Yes Status: Chronic Assessment and plan: Known hx of chronic A-Fib. Currently RVR in setting of hip fx and documented suspected UTI at outside facility. Currently on PO BB and Digoxin via Gtube. HR was 130s, but after receiving 10mg IV push of Cardizem HR now 80s-low 100s. Will start short acting cardizem 30mg [id number] via Gtube to help with rate control as per cardiology. 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 Continue ASA. (3) UTI (urinary tract infection) Current Visit: No Status: Acute Assessment and plan: started on IV ceftriaxone for documented UTI on outside facility on admission, ua and urine cx was cancelled yet, will repeat again will continue IV antibiotics until results. Qualifiers: Qualified Code(s): N39.0 - Urinary tract infection, site not specified (4) C. difficile diarrhea Current Visit: Yes Status: Acute Assessment and plan: has h/o c.d iff and was being treated for that before admision. will continue IV flagyl for now. plan to cntinue flaggyl for 14 days, can change to oral on dc. - Time Spent With Patient 25 - 35 minutes - Subjective Interval history: seen at the bedside,admitted for hip fracture, confused but not agitated demented and does not give any history. ortho following for post op care , s/p Right hip open reduction intramedullary nail fixation, POD#1 - Constitutional Vitals: Temp Pulse Resp BP Pulse Ox 97.4 F L 66 16 103/58 100 05/11/16 15:05 05/11/16 15:05 05/11/16 15:05 05/11/16 15:05 05/11/16 15:05 General appearance: Present: A&O X 0 Exam: cardio: s1 and s2, irregular, no m/r/g chest: b/l clear, no added sounds abdomen: soft nontender nondistended ext- no edema Internal Medicine: Result - Labs CBC & Chem 7: 05/11/16 04:22 05/11/16 04:22 Labs: Short CBC 05/11/16 Range/Units 04:22 Hgb 9.6 L (11.5-15.4) g/dL Hct 30.3 L (35.3-44.9) % BMP 05/11/16 04:22 Sodium 139 Potassium 3.6 Chloride 104 Carbon Dioxide 28 BUN 33 H D Creatinine 0.74 Glucose 158 H Calcium 9.5 - ABG Interpretation ABG results: PT/INR, D-dimer PT 15.3 Seconds (9.4-12.1) H 05/10/16 00:20 - Impressions Impressions Fluoroscopy 05/10/16 15:31 IMPRESSION: Intraprocedural fluoroscopic spot images as above. See separate procedure report for more information. D/ / 05/10/2016 16:44:15 Louis Rojas MD / [email or web address] Interpreting Provider: Louis Rojas MD - VTE Documentation of Mechanical Device: Venous foot pump, device Consult Discharge Plan - Plan Referrals: Oscar Saini MD [Primary Care Provider] -
[2016-05-11] MEDS: *HR* Morphine 2 MG/ML SYRINGE IVP PRN ×2 (18:54→22:46)
[2016-05-11 19:28] LABS: Bilirubin,Urine Negative (Negative); Blood,Urine Negative (Negative); Clarity,Urine Clear (Clear); Color,Urine Dark Yellow (Yellow); Glucose,Urine (UA) Normal (Normal); Ketones,Urine Negative (Negative); Leukocyte Esterase,Urine Small (Negative); Nitrite,Urine Negative (Negative); Protein,Urine Trace mg/dL (Neg-Trace); Specific Gravity,Urine 1.024 (1.010-1.025); Urobilinogen,Urine Normal (Normal)
[2016-05-11 19:30] LABS: Bacteria,Urine None Seen per hpf (None-Few); Hyaline Casts,Urine None Seen per lpf (None-Few); Squamous Epithelial Cell,Urine Many per lpf (None-Few)
[2016-05-11 19:51] LABS: Yeast,Urine Few per hpf (None Seen)
[2016-05-11] MEDS: traZODone 50 MG TABLET GTUBE SCH (20:01)
[2016-05-12] MEDS: metroNIDAZOLE 500 MG TABLET GTUBE SCH ×3 (01:03→16:16)
[2016-05-12] MEDS ORDERED: *HR* LORazepam 2 MG/ML VIAL IVP ONE (01:35)
[2016-05-12] MEDS ORDERED: Water for inj. (sterile) 10 ML IV ONE (01:44)
[2016-05-12 05:37] LABS: Hematocrit 25.2 % (35.3-44.9); Hemoglobin 8.3 g/dL (11.5-15.4)
[2016-05-12 05:51] LABS: BUN/Creatinine Ratio 59 (6-26); Blood Urea Nitrogen 43 mg/dL (7-20); Calcium 9.1 mg/dL (8.6-10.8); Carbon Dioxide 29 mEq/L (19-29); Chloride 103 mEq/L (98-109); Glucose 138 mg/dL (70-99); Osmolality,Calculated 297 (280-300); Potassium 3.5 mEq/L (3.5-4.5); Sodium 137 mEq/L (136-145); eGFR For African Americans > 60 (> 60); eGFR For Non-African Americans > 60 (> 60)
--- NOTE | 2016-05-12 06:50 | Orthopedics Progress Note ---
Date of Encounter: 05/12/16 Time of Encounter: 06:49 Subjective Interval history: Patient was seen this morning with confusion Afebrile vital signs stable. Operative extremity: Neurovascularly intact Dressing clean dry and intact Calves nontender Assessment and plan: Continue with postoperative care ortho stable Objective Vital signs: Vital Signs Temp Pulse Resp BP Pulse Ox 05/12/16 03:04 98.2 F 84 18 120/46 93 L 05/12/16 01:59 98 05/11/16 22:39 96.6 F L 89 18 119/55 99 05/11/16 20:29 97.2 F L 87 20 122/45 100 05/11/16 15:05 97.4 F L 66 16 103/58 100 05/11/16 13:05 95 05/11/16 10:11 97.4 F L 74 16 115/69 95 Intake and Output 05/11/16 05/11/16 05/12/16 15:59 23:59 07:59 Intake Total 300 / 300 400 / 400 150 / 150 Output Total 450 / 450 275 / 275 175 / 175 Balance -150 / -150 125 / 125 -25 / -25 Intake: IV Fluids 100 / 100 Ancef 2,000 MG In 100 / 100 Dextrose 5% 100 ML @ 200 mls/hr IVPB ONCE ONE Rx#: [id number] Oral 0 / 0 0 / 0 Free Water 150 / 150 Free Water Intake Amount 200 / 200 250 / 250 150 / 150 Output: Catheter 450 / 450 275 / 275 175 / 175 Other: Stool Size Moderate Stool Consistency loose liquid Stool Color Brown # Bowel Movements 1 Weight 47.6 kg Patient Weight 05/12/16 23:59 Weight 47.6 kg - Labs CBC & BMP: 05/12/16 05:09 05/12/16 05:09 Labs: Abnormal lab results RBC 3.43 M/mcL (3.82-4.97) L 05/10/16 00:20 Hgb 8.3 g/dL (11.5-15.4) L 05/12/16 05:09 Hct 25.2 % (35.3-44.9) L 05/12/16 05:09 Lymphocytes # 0.5 K/mcL (0.6-4.6) L 05/10/16 00:20 PT 15.3 Seconds (9.4-12.1) H 05/10/16 00:20 BUN 43 mg/dL (7-20) H D 05/12/16 05:09 BUN/Creatinine Ratio 59 (6-26) H 05/12/16 05:09 Glucose 138 mg/dL (70-99) H 05/12/16 05:09 Magnesium 1.4 mg/dL (1.6-2.6) L 05/10/16 00:20 Ur Leukocyte Esterase Small (Negative) H 05/11/16 17:10 Urine Microscopic RBC 5-15 per hpf (0-3) H 05/11/16 17:10 Urine Microscopic WBC 5-15 per hpf (0-3) H 05/11/16 17:10 Ur Squamous Epith Cells Many per lpf (None-Few) H 05/11/16 17:10 Urine Yeast Few per hpf (None Seen) H 05/11/16 17:10 Ur Culture Indicated? YES (NO) A 05/11/16 17:10 - VTE Documentation of Mechanical Device: Venous foot pump, device Consult Discharge Plan - Plan Referrals: Oscar Saini MD [Primary Care Provider] -
[2016-05-12] MEDS: D5% in 0.45% NACL 1,000 ML IVC SCH (07:51)
[2016-05-12] MEDS: *HR* HYDROcodone/Acet 5/325 mg TABLET GTUBE PRN (08:43)
[2016-05-12] MEDS: *HR* Digoxin 0.125 MG TABLET PO SCH (08:44)
[2016-05-12] MEDS: Aspirin 81 MG TAB.CHEW GTUBE SCH (08:44)
--- NOTE | 2016-05-12 12:50 | Internal Med Progress Note ---
Date of Encounter: 05/12/16 Time of Encounter: 12:49 - Assessment and plan (1) Hip fracture Current Visit: Yes Status: Acute Assessment and plan: s/p Right hip open reduction intramedullary nail fixation, POD#2 post op care as per ortho. DVT prophylaxis Qualifiers: Encounter type: initial encounter Fracture type: closed Qualified Code(s) : S72.009A - Fracture of unspecified part of neck of unspecified femur, initial encounter for closed fracture (2) Atrial fibrillation with RVR Current Visit: Yes Status: Chronic Assessment and plan: Known hx of chronic A-Fib. Currently on PO BB and Digoxin via Gtube. cardizem 30mg [id number] via Gtube to help with rate control as per cardiology. HR controlled for now. she is a poor candidate for salvage determiner anticoagulation. Continue ASA. Dc xarelto. (3) UTI (urinary tract infection) Current Visit: No Status: Acute Assessment and plan: started on IV ceftriaxone for documented UTI on outside facility on admission, ua shows UTI, will follow cx results, can dc the perez today. will continue IV antibiotics until results. Qualifiers: Qualified Code(s): N39.0 - Urinary tract infection, site not specified (4) C. difficile diarrhea Current Visit: Yes Status: Acute Assessment and plan: has h/o c.d iff and was being treated for that before admision. will continue IV flagyl for now. plan to cntinue flaggyl for 14 days, can change to oral on dc. - Time Spent With Patient 25 - 35 minutes - Subjective Interval history: seen at the bedside,admitted for hip fracture, confused demented and does not give any history. ortho following for post op care , s/p Right hip open reduction intramedullary nail fixation, POD#2 - Constitutional Vitals: Temp Pulse Resp BP Pulse Ox 97.7 F 79 20 107/47 98 05/12/16 11:12 05/12/16 11:12 05/12/16 11:12 05/12/16 11:12 05/12/16 11:12 General appearance: Present: A&O X 0 Exam: cardio: s1 and s2, irregular, no m/r/g chest: b/l clear, no added sounds abdomen: soft nontender nondistended ext- no edema Internal Medicine: Result - Labs CBC & Chem 7: 05/12/16 05:09 05/12/16 05:09 Labs: Short CBC 05/12/16 Range/Units 05:09 Hgb 8.3 L (11.5-15.4) g/dL Hct 25.2 L (35.3-44.9) % BMP 05/12/16 05:09 Sodium 137 Potassium 3.5 Chloride 103 Carbon Dioxide 29 BUN 43 H D Creatinine 0.73 Glucose 138 H Calcium 9.1 Urine 05/11/16 Range/Units 17:10 Urine Color Dark Yellow (Yellow) Urine Clarity Clear (Clear) Urine pH 6.0 (5.0-8.0) pH Units Ur Specific [place] 1.024 (1.010-1.025) Urine Protein Trace (Neg-Trace) mg/dL Urine Glucose (UA) Normal (Normal) mg/dL - ABG Interpretation ABG results: PT/INR, D-dimer PT 15.3 Seconds (9.4-12.1) H 05/10/16 00:20 - VTE Documentation of Mechanical Device: Venous foot pump, device Consult Discharge Plan - Plan Referrals: Oscar Saini MD [Primary Care Provider] -
[2016-05-12] MEDS: traZODone 50 MG TABLET GTUBE SCH (19:56)
[2016-05-12] MEDS: *HR* Morphine 2 MG/ML SYRINGE IVP PRN (21:58)
[2016-05-13] MEDS: metroNIDAZOLE 500 MG TABLET GTUBE SCH ×3 (00:01→18:59)
[2016-05-13] MEDS ORDERED: *HR* LORazepam 2 MG/ML VIAL IVP ONE ×2 (00:58→23:23)
[2016-05-13 05:02] LABS: Hematocrit 24.5 % (35.3-44.9); Hemoglobin 7.8 g/dL (11.5-15.4)
[2016-05-13 05:17] LABS: BUN/Creatinine Ratio 57 (6-26); Blood Urea Nitrogen 35 mg/dL (7-20); Calcium 8.9 mg/dL (8.6-10.8); Carbon Dioxide 31 mEq/L (19-29); Chloride 104 mEq/L (98-109); Glucose 139 mg/dL (70-99); Osmolality,Calculated 302 (280-300); Potassium 3.7 mEq/L (3.5-4.5); Sodium 141 mEq/L (136-145); eGFR For African Americans > 60 (> 60); eGFR For Non-African Americans > 60 (> 60)
[2016-05-13] MEDS: *HR* Digoxin 0.125 MG TABLET PO SCH (09:20)
[2016-05-13] MEDS: Aspirin 81 MG TAB.CHEW GTUBE SCH (09:21)
--- NOTE | 2016-05-13 14:25 | Internal Med Progress Note ---
Date of Encounter: 05/13/16 Time of Encounter: 14:14 - Assessment and plan (1) Hip fracture Current Visit: Yes Status: Acute Assessment and plan: s/p Right hip open reduction intramedullary nail fixation, POD#3 will transfuse 1 unit today as the hb has dropped to 7. post op care as per ortho. DVT prophylaxis Qualifiers: Encounter type: initial encounter Fracture type: closed Qualified Code(s) : S72.009A - Fracture of unspecified part of neck of unspecified femur, initial encounter for closed fracture (2) Atrial fibrillation with RVR Current Visit: Yes Status: Chronic Assessment and plan: Known hx of chronic A-Fib. Currently on PO BB and Digoxin via Gtube. cardizem 30mg [id number] via Gtube to help with rate control as per cardiology. HR controlled for now. she is a poor candidate for long-term anticoagulation. Continue ASA. Dc xarelto. (3) UTI (urinary tract infection) Current Visit: No Status: Acute Assessment and plan: started on IV ceftriaxone for documented UTI on outside facility on admission, ua shows UTI, cx results show yeast. can dc the perez today. will continue IV antibiotics and complete for 7 days Qualifiers: Urinary tract infection type: acute cystitis Hematuria presence: without hematuria Qualified Code(s): N30.00 - Acute cystitis without hematuria (4) C. difficile diarrhea Current Visit: Yes Status: Acute Assessment and plan: has h/o c.d iff and was being treated for that before admision. will continue IV flagyl for now. plan to cntinue flaggyl for 14 days, can change to oral on dc. (5) Dementia Current Visit: Yes Status: Acute Assessment and plan: did speak to the daughter who is at the bedside. matt says that she was diagnosed with dementia 3 months ago and has been struggling with it , which seems to be getting worse with frequent falls and now the hip fracture. as per her, she has good and bad days, she will need to be dc to a detention facility. Qualifiers: Qualified Code(s): F03.90 - Unspecified dementia without behavioral disturbance - Time Spent With Patient 25 - 35 minutes - Subjective Interval history: seen at the bedside,admitted for hip fracture, sleeping and does not answer to my questions demented and does not give any history, seems to be more alert today. ortho following for post op care , s/p Right hip open reduction intramedullary nail fixation, POD#3 - Constitutional Vitals: Temp Pulse Resp BP Pulse Ox 98.1 F 80 16 152/67 100 05/13/16 11:11 05/13/16 11:11 05/13/16 11:11 05/13/16 11:11 05/13/16 11:11 General appearance: Present: A&O X 0 Exam: cardio: s1 and s2, irregular, no m/r/g chest: b/l clear, no added sounds abdomen: soft nontender nondistended ext- no edema Internal Medicine: Result - Labs CBC & Chem 7: 05/13/16 04:53 05/13/16 04:53 Labs: Short CBC 05/13/16 Range/Units 04:53 Hgb 7.8 L (11.5-15.4) g/dL Hct 24.5 L (35.3-44.9) % BMP 05/13/16 04:53 Sodium 141 Potassium 3.7 Chloride 104 Carbon Dioxide 31 H BUN 35 H Creatinine 0.61 Glucose 139 H Calcium 8.9 - ABG Interpretation ABG results: PT/INR, D-dimer PT 15.3 Seconds (9.4-12.1) H 05/10/16 00:20 - VTE Documentation of Mechanical Device: Venous foot pump, device Consult Discharge Plan - Plan Referrals: Oscar Saini MD [Primary Care Provider] -
[2016-05-13] MEDS ORDERED: 0.9 % Sodium Chloride 250 ML ONE (18:46)
[2016-05-13] MEDS: *HR* HYDROcodone/Acet 5/325 mg TABLET GTUBE PRN ×2 (18:59)
[2016-05-13] MEDS: traZODone 50 MG TABLET GTUBE SCH (20:20)
[2016-05-14] MEDS: metroNIDAZOLE 500 MG TABLET GTUBE SCH ×2 (00:44→09:13)
[2016-05-14 06:47] LABS: Hematocrit 28.3 % (35.3-44.9); Hemoglobin 9.2 g/dL (11.5-15.4)
[2016-05-14 07:01] LABS: BUN/Creatinine Ratio 42 (6-26); Blood Urea Nitrogen 25 mg/dL (7-20); Calcium 8.9 mg/dL (8.6-10.8); Carbon Dioxide 31 mEq/L (19-29); Chloride 106 mEq/L (98-109); Glucose 112 mg/dL (70-99); Osmolality,Calculated 299 (280-300); Potassium 3.8 mEq/L (3.5-4.5); Sodium 142 mEq/L (136-145); eGFR For African Americans > 60 (> 60); eGFR For Non-African Americans > 60 (> 60)
[2016-05-14] MEDS: Aspirin 81 MG TAB.CHEW GTUBE SCH (09:12)
[2016-05-14] MEDS: *HR* HYDROcodone/Acet 5/325 mg TABLET GTUBE PRN (09:12)
[2016-05-14] MEDS: *HR* Digoxin 0.125 MG TABLET PO SCH (09:12)
[2016-05-14 11:08] VITALS: BP 103/49
--- NOTE | 2016-05-14 13:05 | Discharge Summary ---
Date of Encounter: 05/14/16 Time of Encounter: 12:59 - Discharge Diagnosis (1) Hip fracture Priority: Primary Status: Acute Qualifiers: Encounter type: initial encounter Fracture type: closed Qualified Code(s) : S72.009A - Fracture of unspecified part of neck of unspecified femur, initial encounter for closed fracture (2) Atrial fibrillation with RVR Priority: Secondary Status: Chronic (3) UTI (urinary tract infection) Priority: Primary Status: Acute Qualifiers: Urinary tract infection type: acute cystitis Hematuria presence: without hematuria Qualified Code(s): N30.00 - Acute cystitis without hematuria (4) C. difficile diarrhea Priority: Primary Status: Acute (5) Dementia Priority: Primary Status: Acute Qualifiers: Dementia type: Alzheimer's disease Qualified Code(s): G30.0 - Alzheimer's disease with early onset; F02.81 - Dementia in other diseases classified elsewhere with behavioral disturbance - Discharge Medications Prescriptions: Diltiazem [Cardizem] 30 mg PO Q6HR #120 tablet Levofloxacin 500 mg GTUBE DAILY #3 tablet MetroNIDAZOLE [Flagyl] 500 mg GTUBE Q8H 10 Days Home Medications: Aspirin 81 mg GTUBE DAILY 10/13/14 [History] Calcium Carbonate/Vitamin D3 [Calcium 600+D Softgel] 1 each GTUBE DAILY [History] Lactobacillus [Culturelle] 1 each GTUBE BID 8 Days 04/26/16 [Rx] Metoprolol [Lopressor] 50 mg GTUBE BID tablet 04/26/16 [Rx] Digoxin [Lanoxin] 0.125 mg GTUBE DAILY 05/09/16 [History] HYDROcodone/Acet 5/325 mg [[place] 5-325 mg] 1 tab GTUBE Q8H PRN 05/09/16 [History ] Isosorbide DInitrate [Isosorbide Dinitrate] 10 mg GTUBE BID 05/09/16 [History] Losartan Potassium [Cozaar] 100 mg GTUBE DAILY 05/09/16 [History] Menthol [Bengay Ultra Strength] 1 each TP DAILY 05/09/16 [History] Menthol/Zinc Oxide [Calmoseptine Ointment Packet] 1 appl TP Q6H PRN 05/09/16 [ History] Methyl Salicylate/Menthol [Bengay] 1 appl TP Q12H PRN 05/09/16 [History] Sertraline [Zoloft] 25 mg GTUBE DAILY 05/09/16 [History] Trazodone HCl 100 mg GTUBE HS 05/09/16 [History] Diltiazem [Cardizem] 30 mg PO Q6HR #120 tablet 05/14/16 [Rx] Levofloxacin 500 mg GTUBE DAILY #3 tablet 05/14/16 [Rx] MetroNIDAZOLE [Flagyl] 500 mg GTUBE Q8H 10 Days 05/14/16 [Rx] Allergies/Adverse Reactions: Allergies amiodarone Allergy (Verified 05/22/15 08:33) Difficulty Swallowing ciprofloxacin [From Cipro] Allergy (Verified 05/22/15 08:33) Hives doxycycline Allergy (Verified 05/22/15 08:33) Hives Sulfa (Sulfonamide Antibiotics) Allergy (Verified 05/22/15 08:33) Hives pravastatin Adverse Reaction (Verified 02/03/16 11:34) Dizziness tramadol Adverse Reaction (Verified 02/03/16 11:34) Hypertension Date of admission: 05/09/16 20:43 Primary care physician: Oscar Saini MD Consults: 05/09/16 23:42 Consult to Cardiology [CONS] Stat Comment: Consulting Provider: [facility] Reason for Consult: preoperative clearance before hip surgery. AFib with RVR on xarelto Call Completed: No 05/10/16 18:18 Consult to Occupational Therapy [CONS] Routine Comment: Evaluate, develop and implement POC Consult to Orthopedic Navigator [CONS] [CONS] Routine Consult to Physical Therapy [CONS] Routine Comment: NWB right LE RT Post Op Consult [CONS] Routine 05/10/16 20:20 Consult to Nutrition [CONS] Routine Comment: Consulting Provider: NUTRITION Reason for Dietary Consult: TF Start and Manage 05/12/16 12:57 Consult to Health Physics Technician [CONS] Routine Reason for SW Consult: discharge planning Discharging clinician: Kyle Avila Anticipated date of discharge: 05/14/16 - Patient Status Disposition: Transfer SNF Condition: Fair Functional capacity at discharge: bed bound Overall status at discharge: patient is progressing back to baseline - Discharge Instructions Follow Up With: Gabriella Mcdermott PAC [Physician Stage Electrician] - 05/24/16 11:00 am Ellis Ríos MD [Partnered Physician] - 05/15/16 2:15 pm Oscar Saini MD [Primary Care Provider] - Additional Instructions: Discharge Instructions: Total Hip Replacement Please call [facility] ([phone]), your Primary Care Physician, or report to the Emergency Room if you have any of the following symptoms: Nausea, vomiting, fever greater that 101.5, swelling, chest pain, shortness of breath, increased pain/redness/drainage/odor for your incision site, numbness/ tingling, or any other concerning symptoms. ACTIVITY:Weight-bearing as tolerated for 8 weeks with hip dislocation precautions that physical therapy taught you. You may progress as tolerated under the guidance of your physical therapist. You do not need to sleep with a pillow between your legs. You can also seep on the operative side or on your stomach. MEDICATIONS: Upon discharge resume your home medications. Take all the medications as prescribed. Take a stool softener if taking narcotic pain medications. Stool softeners are only effective if you drink enough fluids. Drink 6-8 glass of water or fluids a day, unless this is not allowed for another health problem. Despite using stool softeners, if you haven't had a bowel movement in 3 days, please switch to a gentle laxative. Gentle laxatives are sold over the counter. You should have a bowel movement within 24 hours, if not call the office. You will be discharged from the hospital with a prescription for pain medication. You are encouraged to decrease the use of narcotic pain medication as tolerated. Should you require a refill, please call the office. [facility] prescribes narcotic pain medication for only 4-6 weeks after surgery. If you require pain medication beyond this time periord, you may be referred to your Primary Care Physician or to the Pain Clinic for further evaluation. Plan ahead for refills on pain medication as many narcotics either need to be picked up at the office or mailed. It is best to call 48-72 hours in advance of needing a prescription refill so you don't run out of medication. To help control the post-operative pain, you may take NSAIDs (Aleve,Advil, Motrin, ibuprofen, naprosyn) or Tylenol as prescribed on the bottle in addition to the pain medication. ANTICOAGULATION (blood thinners): Continue your Aspirin, Lovenox or Coumadin as prescribed to help prevent a blood clot in the leg or in the lungs. As long as your incision remains dry and you tolerate the NSAIDs (Aleve, Advil, Motrin, ibuprofen, naprosyn), it is OK to use the NSAIDS while you are taking your anticoagulation medication. Should your incision start to drain, stop the NSAID and contact our office. Common symptoms of blood clot in the legs include: localized pain, swelling, calf tenderness, redness or discoloration of the skin. Blood clot in the lung symptoms include: shortness of breath, rapid pulse, sweating, and chest pain that worsens with deep breathing, coughing up blood, lightheadedness, feelings of anxiety. If you experience any of these symptoms notify your physician immediately, go to the emergency room, or if having trouble breathing, call 911. WOUND CARE: Leave the dressing on for 7 days. You may change the dressing if it is saturated greater than 50%. You can shower but not a tub bath or submerge your incision in water. Wash your hands with antibacterial soap, rinse and dry prior to any wound care. If you have torie the visiting nurse or rehab facility can remove the stapes 10-14 days after surgery and place steri-strips across the wound. Leave the steri-strips in place until they fall off on their won. You may let water from the shower run on top of the steri-stirips. If you do not have a visiting nurse or rehab facility, you will need to return to the office at 10-14 days for the torie to be removed. FOLLOW-UP: Please follow up with your surgeon in the orthopedic clinic in 6 weeks from the day of surgery. If you have torie that need to be removed, you will need to come back to the office in 10-14 days from the day of surgery. - Diet and Activity Activity: as per physical therapy Diet: other (g- tube feeds for now ) Interval History: Ms. Stoll is a 85 year old female who was transferred from [facility] after she had sustained right femur fracture. Patient was hospitalized there for 2 days however surgery was canceled because patient developed a fever. It was thought that the fever was related to blood transfusion reaction that she had received. However a urine analysis was also concerning for a urinary tract infection. Patient is severely demented she cannot provide any history during my interview. she had AFIB with RVR on presentation, cardio was consulted stress test 08/2015 negative for ischemia. echocardiogram 02/2016 - EF preserved. she was started on cardizem 30mg [id number] via Gtube to help with rate control along with by mouth beat blockers and digoxin. ortho was consulted for the hip fracture and she underwent Right hip open reduction intramedullary nail fixation. she also received IV ceftriaxone for UTI diagnosed at outside facillity, as she cannot complain, will continue tx for total of 7 days. she also was being treated for c.diff colitis, was continued on flagyl and will complete 14 days of treatment. post op care was managed by ortho. she remained hemodynamically stable but is demented at baseline, she is getting feedings via GTube she is being dc to ECF today in stable condition. Hospital course: Ms. Stoll is a 85 year old female Time spent discussing smoking cessation with patient: more than 10 minutes - Time Spent with Patient Total time spent providing and/or coordinating discharge services: Greater than 30 minutes - Constitutional Vitals: Temp Pulse Resp BP Pulse Ox 97.7 F 66 16 103/49 97 05/14/16 11:07 05/14/16 11:07 05/14/16 11:07 05/14/16 11:07 05/14/16 11:07 General appearance: Present: A&O X 0 Exam: cardio: s1 and s2, irregular, no m/r/g chest: b/l clear, no added sounds abdomen: soft nontender nondistended ext- no edema - VTE Documentation of Mechanical Device: Venous foot pump, device
--- NOTE | 2016-05-14 13:08 | Physician Discharge Referral ---
ExtendedCare Referral Info Transfer To: F Provider in Charge: radha lawson Institutional Level of Care: Skilled - Diagnosis (1) Hip fracture Status: Acute (2) Atrial fibrillation with RVR Status: Chronic (3) UTI (urinary tract infection) Status: Acute (4) C. difficile diarrhea Status: Acute (5) Dementia Status: Acute - Transfer Medications Prescriptions: Diltiazem [Cardizem] 30 mg PO Q6HR #120 tablet Levofloxacin 500 mg GTUBE DAILY #3 tablet MetroNIDAZOLE [Flagyl] 500 mg GTUBE Q8H 10 Days Home Medications: Aspirin 81 mg GTUBE DAILY 10/13/14 [History] Calcium Carbonate/Vitamin D3 [Calcium 600+D Softgel] 1 each GTUBE DAILY [History] Lactobacillus [Culturelle] 1 each GTUBE BID 8 Days 04/26/16 [Rx] Metoprolol [Lopressor] 50 mg GTUBE BID tablet 04/26/16 [Rx] Digoxin [Lanoxin] 0.125 mg GTUBE DAILY 05/09/16 [History] HYDROcodone/Acet 5/325 mg [[place] 5-325 mg] 1 tab GTUBE Q8H PRN 05/09/16 [History ] Isosorbide DInitrate [Isosorbide Dinitrate] 10 mg GTUBE BID 05/09/16 [History] Losartan Potassium [Cozaar] 100 mg GTUBE DAILY 05/09/16 [History] Menthol [Bengay Ultra Strength] 1 each TP DAILY 05/09/16 [History] Menthol/Zinc Oxide [Calmoseptine Ointment Packet] 1 appl TP Q6H PRN 05/09/16 [ History] Methyl Salicylate/Menthol [Bengay] 1 appl TP Q12H PRN 05/09/16 [History] Sertraline [Zoloft] 25 mg GTUBE DAILY 05/09/16 [History] Trazodone HCl 100 mg GTUBE HS 05/09/16 [History] Diltiazem [Cardizem] 30 mg PO Q6HR #120 tablet 05/14/16 [Rx] Levofloxacin 500 mg GTUBE DAILY #3 tablet 05/14/16 [Rx] MetroNIDAZOLE [Flagyl] 500 mg GTUBE Q8H 10 Days 05/14/16 [Rx] Allergies/Adverse Reactions: Allergies amiodarone Allergy (Verified 05/22/15 08:33) Difficulty Swallowing ciprofloxacin [From Cipro] Allergy (Verified 05/22/15 08:33) Hives doxycycline Allergy (Verified 05/22/15 08:33) Hives Sulfa (Sulfonamide Antibiotics) Allergy (Verified 05/22/15 08:33) Hives pravastatin Adverse Reaction (Verified 02/03/16 11:34) Dizziness tramadol Adverse Reaction (Verified 02/03/16 11:34) Hypertension - Respiratory Orders Smoking Cessation: Smoking cessation has been advised. For more information, call the [place] Tobacco Quit Line at 0-639-TWNK-NOW. - Mobility Orders Chair - Rehabiliation Orders Rehab Potential: Poor Rehab Orders: Evaluation for Physical Therapy, Evaluation for Occupational Therapy - Diet Orders Tube Feedings (type/amount/rate): Jevity 1.5@ 50ml/hr CERTIFICATION: I certify that the transfer of the above named patient to an Extended Care Facility is necessary for the continuing treatment of the diagnosis listed. The above information is true and accurate reflection of patient's current condition. Confidential - Redisclosure prohibited without a patient's written consent.
== END 2016-05-14 14:48 | DRG 480 ==
LOC: SUATTDRO 20:43 → 3NENU 20:43
PROVIDERS: ADMIT Nurse Practitioner Family; ATTEND Internal Medicine Endocrinology, Diabetes & Metabolism